=== PATIENT | female | born 1975 | race Caucasian/White ===

== ENCOUNTER → 2019-03-13 09:12 | Day surgery (SDC) | payer OTHER ==
[~2019-03-13 09:12] MED LIST: Buffered Lidocaine 1% SYRIN* 1 ML/SYRINGE INTRADERM ONE; Dexamethasone IV* 4 MG/ML 1 ML (4 MG) IV SLOW PU ONE; Dexamethasone IV* 4 MG/ML 1 ML (4 MG) ONE; DiMENhydriNATE IV* 50 MG/ML VIAL IV PUSH PRN; Famotidine IV* 10 MG/ML 2 ML (20 mg) IV ONE; Famotidine IV* 10 MG/ML 2 ML (20 mg) ONE; Ketorolac INJ* 30 MG/ML 1 ML VIAL ONE; Lactated Ringers 1000 ML Bag* 1,000 ML IV SCH; Lidocaine 2% PF * 5 ML VIAL ONE; Naloxone* 0.4 MG/ML 1 ML VIAL IV PRN; Ondansetron INJ* 2 MG/ML VIAL ONE; Propofol* 10 MG/ML 20 ML BTL ONE; fentaNYL* 50 MCG/ML 2 ML VIAL (100 MCG VIAL) IV PRN; fentaNYL* 50 MCG/ML 2 ML VIAL (100 MCG VIAL) ONE
[2019-03-13 13:10] VITALS: BP 138/74
--- NOTE | 2019-03-13 13:13 | OP ---
DATE OF OPERATION: 03/13/19 - [facility] DATE OF : 73 SURGEON: Alexander Almanzar MD ANESTHESIA: General endotracheal tube. PRE-OP DIAGNOSES: Menorrhagia and submucous mass POST-OP DIAGNOSES: Menorrhagia and submucous polyp OPERATIVE PROCEDURE: Dilation and curettage, hysteroscopy MyoSure, resection of mass. COMPLICATIONS: None. FINDINGS: On exam under anesthesia, uterus sounded to 10 cm. The uterus was mid position. Cervix, vagina, and vulva appeared normal. On hysteroscopy, both tubal ostia well visualized. There was a 1 cm submucous mass consistent with a small leiomyoma in the midline coming out the fundus. The rest of the cavity appeared normal. DESCRIPTION OF PROCEDURE: The patient identified, procedure identified as a D and C, hysteroscopy MyoSure, resection of polyp. The patient was taken to the operating room, prepped and draped in the usual fashion in the dorsal lithotomy position under general anesthesia. Two single-toothed tenaculum were placed on the anterior lip of the cervix. Cervix was sounded to 10 cm. The cervix was easily dilated to #27 Nestor dilator. The MyoSure hysteroscope was inserted, the above findings were noted. The MyoSure REACH was utilized to resect the submucous mass until it was completely flushed with the endometrium. A small curette was inserted and sharp curettage was performed. All instruments removed from the vagina. Good hemostasis was achieved and all sponge and instrument counts were correct, and the patient returned to recovery room in stable condition. [id number]/[facility] #: [id number] MTDD
== END | disposition home or self-care (01) ==
LOC: OR 09:12
PROVIDERS: ATTEND Obstetrics & Gynecology
DX: N92.0 Excessive and frequent menstruation with regular cycle (principal); N84.0 Polyp of corpus uteri; R10.2 Pelvic and perineal pain; N94.9 Unspecified condition associated with female genital organs and menstrual cycle; I10 Essential (primary) hypertension; E03.9 Hypothyroidism, unspecified
CPT/HCPCS: 81025; 88305; J1100; J1885; J2405; J2704; J3010